=== PATIENT | female | born 1990 | race American Indian/Alaskan Native ===

== ENCOUNTER 2017-07-03 23:14 | Emergency (ER) | payer SELFPAY ==
[2017-07-03] MEDS ORDERED: Albuterol/Ipratropium 3.0-0.5 MG/3 ML Neb Soln INH ONE (23:15)
[2017-07-03] MEDS ORDERED: Amoxicillin/Clavulanate K 875-125 MG Tab PO ONE (23:15)
[2017-07-03] MEDS ORDERED: Albuterol/Ipratropium 3.0-0.5 MG/3 ML Neb Soln NEB ONE (23:33)
[2017-07-03] MEDS ORDERED: Albuterol/Ipratropium 3.0-0.5 MG/3 ML Neb Soln ONE (23:43)
[2017-07-03] MEDS ORDERED: Amoxicillin/Clavulanate K 875-125 MG Tab ONE (23:43)
[2017-07-04 00:06] VITALS: BP 120/71
--- NOTE | 2017-07-04 00:06 | EDM.PDOC ---
ED HPI GENERAL MEDICAL PROBLEM - General Chief Complaint: Respiratory Problem Stated Complaint: CHEST PAIN, DIFFICULTY BREATHING Time Seen by Provider: 07/04/17 00:07 Source of Information: Reports: Patient History Limitations: Reports: No Limitations - History of Present Illness INITIAL COMMENTS - FREE TEXT/NARRATIVE: c/o cold symptoms for past 3-4 days, fever, cough, congestion. Notes hx frequent pneumonia with similar symptoms . Reports using OTC cough and cold medications without improvement. Has home nebulizer but no medication. 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 ED EXAM, GENERAL - Physical Exam Exam: See Below Exam Limited By: No Limitations General Appearance: Alert, Mild Distress Eye Exam: Bilateral Eye: EOMI Ears: Normal External Exam Ear Exam: Right Ear: TM Dull, Left Ear: TM Red (with effusion ) Nose: Clear Rhinorrhea, Other (sinus tenderness, erythema turbinates) Throat/Mouth: Normal Inspection Head: Atraumatic, Normocephalic Neck: Normal Inspection Respiratory/Chest: Lungs Clear, Decreased Breath Sounds (bases), Other ( frequent dry cough) Cardiovascular: Normal Peripheral Pulses, Regular Rate, Rhythm GI/Abdominal: Normal Bowel Sounds Neurological: Alert, Oriented Psychiatric: Flat Affect Skin Exam: Warm, Dry, Intact, Normal Color Course - Vital Signs Last Recorded V/S: Last Vital Signs Temp 98.4 F 07/03/17 23:25 Pulse 77 07/03/17 23:25 Resp 20 07/03/17 23:25 BP 118/75 07/03/17 23:25 Pulse Ox 98 07/03/17 23:25 - Orders/Labs/Meds Orders: Active Orders 24 hr Category Date Time Status RT Aerosol Therapy [RC] ASDIRECTED Care 07/03/17 23:33 Active Meds: Medications Discontinued Medications Generic Name Dose Route Start Last Admin Trade Name Maria E PRN Reason Stop Dose Admin Albuterol/Ipratropium 3 ml 07/03/17 23:33 07/03/17 23:37 Duoneb 3.0-0.5 Mg/3 Ml NEB 07/03/17 23:34 3 ml ONETIME ONE Administration Albuterol/Ipratropium Confirm 07/03/17 23:43 Duoneb 3.0-0.5 Mg/3 Ml Administered 07/03/17 23:44 Dose 9 ml .ROUTE .STK-MED ONE Amoxicillin/Clavulanate Potassium Confirm 07/03/17 23:43 Augmentin 875 Mg/125 Mg Administered 07/03/17 23:44 Dose 2 tab .ROUTE .STK-MED ONE Departure - Departure Time of Disposition: 00:01 Disposition: Home, Self-Care 01 Condition: Good Clinical Impression: Left otitis media with effusion, Bronchitis, History of asthma - Discharge Information Instructions: Upper Respiratory Infection, Adult, [id number] Additional Instructions: albuterol neb every 4 hours as needed augmentin 875 one twice daily for one week increase fluids humidification clinic follow up this week - My Orders Last 24 Hours: My Active Orders 07/03/17 23:33 RT Aerosol Therapy [RC] ASDIRECTED - Assessment/Plan Last 24 Hours: My Active Orders 07/03/17 23:33 RT Aerosol Therapy [RC] ASDIRECTED
== END 2017-07-04 00:08 | disposition home or self-care (01) ==
LOC: DL.ED 23:14
DX: H65.92 Unspecified nonsuppurative otitis media, left ear (principal); J40 Bronchitis, not specified as acute or chronic
CPT/HCPCS: 94640; 99284; A9270

== ENCOUNTER 2017-08-01 17:44 | Emergency (ER) | payer SELFPAY ==
[2017-08-01] MEDS ORDERED: Sodium Chloride 0.9% 1,000 ML IV ONE (18:12)
--- NOTE | 2017-08-01 18:12 | EDM.PDOC ---
<Tony Cervantes - Last Filed: 08/01/17 18:43> ED HPI GENERAL MEDICAL PROBLEM - General Chief Complaint: General Stated Complaint: SICK. [phone] NO ID Time Seen by Provider: 08/01/17 18:05 Source of Information: Reports: Patient History Limitations: Reports: No Limitations - History of Present Illness INITIAL COMMENTS - FREE TEXT/NARRATIVE: This 27 yo female patient reports to the ED with a 3 day history of generalized body aches, increased abdominal discomfort, fevers and chills. The patient reports she has been taking Tylenol and ibuprofen for temporary symptom relief. The patient reports she also has pain in her back. The patient has not attempted to get into the clinic and is not on any antibiotics. The patient reports she has had a hysterectomy. 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 [No Known Home Meds] 08/01/17 [History] Past Medical History Other HEENT History: history of ear infections - Past Surgical History Other HEENT Surgeries/Procedures: doesn't know if she still has tonsils. Female Surgical History: Reports: Section, Hysterectomy Social & Family History - Tobacco Use Smoking Status *Q: Never Smoker Years of Tobacco use: 5 Packs/Tins Daily: 1 Second Hand Smoke Exposure: No - Caffeine Use Caffeine Use: Reports: Coffee, Soda, Tea - Alcohol Use Days Per Week of Alcohol Use: 0 - Recreational Drug Use Recreational Drug Use: No Drug Use in Last 12 Months: Yes Recreational Drug Type: Reports: Methamphetamine Recreational Drug Use Frequency: Daily ED ROS GENERAL - Review of Systems Review Of Systems: ROS reveals no pertinent complaints other than HPI. ED EXAM, GENERAL - Physical Exam Exam: See Below Exam Limited By: No Limitations General Appearance: Alert, WD/WN, Moderate Distress, Thin Eye Exam: Bilateral Eye: EOMI, Normal Inspection, PERRL Ears: Normal External Exam, Normal Canal, Hearing Grossly Normal, Normal TMs, Other (fluid visible behind TMs) Nose: Normal Inspection, Normal Mucosa, No Blood Throat/Mouth: Normal Inspection, Normal Lips, Normal Teeth, Normal Gums, Normal Oropharynx, Normal Voice, No Airway Compromise Head: Atraumatic, Normocephalic Neck: Normal Inspection, Supple, Non-Tender, Full Range of Motion Respiratory/Chest: No Respiratory Distress, Lungs Clear, Normal Breath Sounds, No Accessory Muscle Use, Chest Non-Tender Cardiovascular: Normal Peripheral Pulses, Regular Rate, Rhythm, No Edema, No Gallop, No JVD, No Murmur, No Rub GI/Abdominal: Normal Bowel Sounds, Soft, No Organomegaly, No Distention, No Abnormal Bruit, No Mass, Pelvis Stable, Tender (generalized abdominal tenderness ) (Female) Exam: Deferred Rectal (Female) Exam: Deferred Back Exam: CVA Tenderness (L), CVA Tenderness (R) Extremities: Normal Inspection, Normal Range of Motion, Non-Tender, Normal Capillary Refill, No Pedal Edema Neurological: Alert, Oriented, CN II-XII Intact, Normal Cognition, Normal Gait, Normal Reflexes, No Motor/Sensory Deficits Psychiatric: Normal Affect, Normal Mood Skin Exam: Dry, Intact, Normal Color, No Rash, Increased Warmth Lymphatic: No Adenopathy Course - Vital Signs Last Recorded V/S: Last Vital Signs Temp 98.7 F 08/01/17 19:57 Pulse 70 08/01/17 19:57 Resp 16 08/01/17 19:57 BP 95/58 L 08/01/17 19:57 Pulse Ox 99 08/01/17 19:57 - Orders/Labs/Meds Orders: Active Orders 24 hr Category Date Time Status CULTURE BLOOD [BC] Stat Lab 08/01/17 18:21 Received CULTURE BLOOD [BC] Stat Lab 08/01/17 18:28 Received CULTURE STREP A CONFIRMATION [RM] Stat Lab 08/01/17 18:11 Results STREP SCRN A RAPID W CULT CONF [RM] Stat Lab 08/01/17 18:11 Results Blood Culture x2 Reflex Set [OM.PC] Stat Oth 08/01/17 18:07 Ordered Labs: Laboratory Tests 08/01/17 08/01/17 08/01/17 Range/Units 18:21 18:24 18:24 WBC (5.0-10.0) 10^3/uL RBC (4.2-5.4) 10^6/uL Hgb (12.0-16.0) g/dL Hct (37.0-47.0) % MCV (80-100) fL MCH (27.0-34.0) pg MCHC (33.0-35.0) g/dL Plt Count (150-450) 10^3/uL Neut % (Auto) (42.2-75.2) % Lymph % (Auto) (20.5-50.1) % [place] % (Auto) (2-8) % Eos % (Auto) (1.0-3.0) % Baso % (Auto) (0.0-1.0) % Sodium (135-145) mmol/L Potassium (3.6-5.0) mmol/L Chloride (101-111) mmol/L Carbon Dioxide (21.0-31.0) mmol/L Anion Gap BUN (7-18) mg/dL Creatinine (0.6-1.3) mg/dL Est Cr Clr Drug Dosing mL/min Estimated GFR (MDRD) BUN/Creatinine Ratio Glucose (74-105) mg/dL Lactic Acid 0.7 (0.5-2.2) mmol/L Calcium (8.4-10.2) mg/dl Total Bilirubin (0.2-1.0) mg/dL AST (10-42) IU/L ALT (10-60) IU/L Alkaline Phosphatase (42-121) IU/L Total Protein (6.7-8.2) g/dl Albumin (3.2-5.5) g/dl Globulin Albumin/Globulin Ratio Amylase (28-100) U/L Lipase (22-51) U/L Urine Color Dark yellow (YELLOW) Urine Appearance Turbid (CLEAR) Urine pH 6.5 (5.0-9.0) Ur Specific [place] 1.020 (1.005-1.030) Urine Protein 30 H (NEGATIVE) Urine Glucose (UA) Negative (NEGATIVE) Urine Ketones Negative (NEGATIVE) Urine Occult Blood Moderate H (NEGATIVE) Urine Nitrite Positive H (NEGATIVE) Urine Bilirubin Negative (NEGATIVE) Urine Urobilinogen 1.0 (0.2-1.0) mg/dL Ur Leukocyte Esterase Moderate H (NEGATIVE) Urine RBC >100 H /HPF Urine WBC Packed H (0-5/HPF) /HPF Ur Epithelial Cells Many H /HPF Amorphous Sediment Few (0/HPF) /HPF Urine Bacteria Many H (0-FEW/HPF) /HPF Urine Mucus Many H /LPF Urine Opiates Screen Negative (NEGATIVE) Ur Oxycodone Screen Negative (NEGATIVE) Urine Methadone Screen Negative (NEGATIVE) Ur Barbiturates Screen Negative (NEGATIVE) U Tricyclic Antidepress Negative (NEGATIVE) Ur Phencyclidine Scrn Negative (NEGATIVE) Ur Amphetamine Screen Negative (NEGATIVE) U Methamphetamines Scrn Negative (NEGATIVE) Urine MDMA Screen Negative (NEGATIVE) U Benzodiazepines Scrn Negative (NEGATIVE) Urine Cocaine Screen Negative (NEGATIVE) U Marijuana (THC) Screen Negative (NEGATIVE) 08/01/17 08/01/17 Range/Units 18:28 18:28 WBC 10.0 (5.0-10.0) 10^3/uL RBC 4.49 (4.2-5.4) 10^6/uL Hgb 13.9 D (12.0-16.0) g/dL Hct 43.2 (37.0-47.0) % MCV 96.2 D (80-100) fL MCH 31.0 (27.0-34.0) pg MCHC 32.2 L (33.0-35.0) g/dL Plt Count 247 D (150-450) 10^3/uL Neut % (Auto) 77.6 H (42.2-75.2) % Lymph % (Auto) 9.2 L (20.5-50.1) % [place] % (Auto) 12.5 H (2-8) % Eos % (Auto) 0.6 L (1.0-3.0) % Baso % (Auto) 0.1 (0.0-1.0) % Sodium 138 (135-145) mmol/L Potassium 3.4 L (3.6-5.0) mmol/L Chloride 102 (101-111) mmol/L Carbon Dioxide 28.0 (21.0-31.0) mmol/L Anion Gap 11.4 BUN 7 (7-18) mg/dL Creatinine 0.6 (0.6-1.3) mg/dL Est Cr Clr Drug Dosing 105.34 mL/min Estimated GFR (MDRD) > 60 BUN/Creatinine Ratio 11.66 Glucose 92 (74-105) mg/dL Lactic Acid (0.5-2.2) mmol/L Calcium 9.4 (8.4-10.2) mg/dl Total Bilirubin 0.5 (0.2-1.0) mg/dL AST 47 H (10-42) IU/L ALT 40 (10-60) IU/L Alkaline Phosphatase 117 (42-121) IU/L Total Protein 8.0 (6.7-8.2) g/dl Albumin 4.0 (3.2-5.5) g/dl Globulin 4.0 Albumin/Globulin Ratio 1.00 Amylase 19 L (28-100) U/L Lipase 18 L (22-51) U/L Urine Color (YELLOW) Urine Appearance (CLEAR) Urine pH (5.0-9.0) Ur Specific [place] (1.005-1.030) Urine Protein (NEGATIVE) Urine Glucose (UA) (NEGATIVE) Urine Ketones (NEGATIVE) Urine Occult Blood (NEGATIVE) Urine Nitrite (NEGATIVE) Urine Bilirubin (NEGATIVE) Urine Urobilinogen (0.2-1.0) mg/dL Ur Leukocyte Esterase (NEGATIVE) Urine RBC /HPF Urine WBC (0-5/HPF) /HPF Ur Epithelial Cells /HPF Amorphous Sediment (0/HPF) /HPF Urine Bacteria (0-FEW/HPF) /HPF Urine Mucus /LPF Urine Opiates Screen (NEGATIVE) Ur Oxycodone Screen (NEGATIVE) Urine Methadone Screen (NEGATIVE) Ur Barbiturates Screen (NEGATIVE) U Tricyclic Antidepress (NEGATIVE) Ur Phencyclidine Scrn (NEGATIVE) Ur Amphetamine Screen (NEGATIVE) U Methamphetamines Scrn (NEGATIVE) Urine MDMA Screen (NEGATIVE) U Benzodiazepines Scrn (NEGATIVE) Urine Cocaine Screen (NEGATIVE) U Marijuana (THC) Screen (NEGATIVE) Meds: Medications Discontinued Medications Generic Name Dose Route Start Last Admin Trade Name Freq PRN Reason Stop Dose Admin Ceftriaxone Sodium 1 gm 08/01/17 20:50 Rocephin IVPUSH 08/01/17 20:51 ONETIME ONE Sodium Chloride 1,000 mls @ 999 mls/hr 08/01/17 18:12 08/01/17 18:31 Normal Saline IV 08/01/17 19:12 999 mls/hr .BOLUS ONE Administration Ketorolac Tromethamine 30 mg 08/01/17 19:26 08/01/17 19:41 Toradol IVPUSH 08/01/17 19:27 30 mg ONETIME ONE Administration Ondansetron HCl 4 mg 08/01/17 19:26 08/01/17 19:39 Zofran IV 08/01/17 19:27 4 mg ONETIME ONE Administration Departure - Departure Disposition: Home, Self-Care 01 Clinical Impression: Pyelonephritis - Discharge Information Instructions: Pyelonephritis, Adult, [id number] Forms: ED Department Discharge Additional Instructions: cipro 500mg one twice daily for 5 days increase fluid intake alternate tylenol 650mg and ibuprofen 600mg every 4 hours as needed for discomfort clinic follow up on , call to schedule appointment <Janene Fernández - Last Filed: 08/01/17 20:54> Departure - Departure Time of Disposition: 20:52 Condition: Good
[2017-08-01 18:55] LABS: CHLORIDE,CL 102 mmol/L (101-111); SODIUM,NA 138 mmol/L (135-145)
[2017-08-01] MEDS ORDERED: Ketorolac 30 MG/ML SDV IVPUSH ONE (19:26)
[2017-08-01] MEDS ORDERED: Ondansetron 4 MG/2 ML SDV IV ONE (19:26)
[2017-08-01 19:58] VITALS: BP 95/58
[2017-08-01] MEDS ORDERED: cefTRIAXone 1 GM Vial IVPUSH ONE (20:50)
== END 2017-08-01 21:15 | disposition home or self-care (01) ==
LOC: DL.ED 17:44
DX: N12 Tubulo-interstitial nephritis, not specified as acute or chronic (principal)
CPT/HCPCS: 36415; 74176; 80053; 80305; 81001; 82150; 83605; 83690; 85025; 87040; 87081; 87430; 87804; 96361; 96374; 96375; 99284; J0696; J1885; J2405; J7030

== ENCOUNTER 2017-10-22 00:05 | Emergency (ER) | payer SELFPAY ==
[2017-10-22] MEDS ORDERED: Acetaminophen/HYDROcodone 325-10 MG Tab PO ONE (00:06)
[2017-10-22 00:20] VITALS: BP 127/89
[2017-10-22] MEDS ORDERED: Sodium Chloride 0.9% 1,000 ML IV ONE (00:49)
[2017-10-22] MEDS ORDERED: Iopamidol 612 MG/ML 75 ML Bottle IVPUSH ONE (01:07)
--- NOTE | 2017-10-22 01:07 | EDM.PDOC ---
ED HPI GENERAL MEDICAL PROBLEM - General Chief Complaint: Flank Pain Stated Complaint: IN BY AMBULANCE Time Seen by Provider: 10/22/17 00:54 Source of Information: Reports: Patient History Limitations: Reports: No Limitations - History of Present Illness INITIAL COMMENTS - FREE TEXT/NARRATIVE: This 27 yo female patient was brought to the ED by [facility] due to left lower abdominal pain and left back pain. The patient reports her symptoms started this morning. The patient has been taking ibuprofen and Tylenol with no relief. The patient reports no history of trauma, falls or other injuries to the area. The patient reports similar symptoms on the other side about 1 year ago due to a UTI. The patient reports she has been nauseated today and vomited 1 time today. The patient reports she has been feeling like she has chills and sweats through out the day. Onset Date: 10/21/17 Duration: Constant, Getting Worse Location: Reports: Abdomen (LLQ), Back (Left lower back) Quality: Reports: Ache, Sharp, Stabbing Severity: Severe Improves with: Reports: None Worsens with: Reports: None Associated Symptoms: Reports: Nausea/Vomiting Treatments SHOP HAND: Reports: Acetaminophen, NSAIDS Left Flank Pain Score (Numeric/FACES): 10 - Related Data Allergies Allergy/AdvReac Type Severity Reaction Status Date / Time No Known Allergies Allergy Verified 10/22/17 00:05 Home Meds: Home Meds . [No Known Home Meds] 08/01/17 [History] Past Medical History Other HEENT History: history of ear infections Genitourinary History: Reports: Pyelonephritis, UTI, Recurrent CLINICAL STUDIES SPECIALIST History: Reports: - Past Surgical History Other HEENT Surgeries/Procedures: doesn't know if she still has tonsils. 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 ED EXAM, GI/ABD - Physical Exam Exam: See Below Exam Limited By: No Limitations General Appearance: Alert, WD/WN, Moderate Distress Eyes: Bilateral: Normal Appearance, EOMI Ears: Normal External Exam, Normal Canal, Hearing Grossly Normal, Normal TMs Nose: Normal Inspection, Normal Mucosa, No Blood Throat/Mouth: Normal Inspection, Normal Lips, Normal Teeth, Normal Gums, Normal Oropharynx, Normal Voice, No Airway Compromise Head: Atraumatic, Normocephalic Neck: Normal Inspection, Supple, Non-Tender, Full Range of Motion Respiratory/Chest: No Respiratory Distress, Lungs Clear, Normal Breath Sounds, No Accessory Muscle Use, Chest Non-Tender GI/Abdominal Exam: No Organomegaly, No Distention, No Abnormal Bruit, No Mass, Pelvis Stable, Guarding, Tender (LLQ) (Female) Exam: Deferred Rectal (Female) Exam: Deferred Back Exam: Normal Inspection, Full Range of Motion, NT Extremities: Normal Inspection, Normal Range of Motion, Non-Tender, Normal Capillary Refill, No Pedal Edema Neurological: Alert, Oriented, CN II-XII Intact, Normal Cognition, Normal Gait, Normal Reflexes, No Motor/Sensory Deficits Psychiatric: Normal Affect, Normal Mood Skin Exam: Warm, Dry, Intact, Normal Color, No Rash Lymphatic: No Adenopathy Course - Vital Signs Last Recorded V/S: Last Vital Signs Temp 37.6 C 10/22/17 00:18 Pulse 78 10/22/17 00:18 Resp 20 10/22/17 00:18 BP 127/89 10/22/17 00:18 Pulse Ox 100 10/22/17 00:18 - Orders/Labs/Meds Labs: Laboratory Tests 10/22/17 10/22/17 10/22/17 Range/Units 00:10 00:10 00:45 WBC 9.5 (5.0-10.0) 10^3/uL RBC 4.38 (4.2-5.4) 10^6/uL Hgb 13.3 (12.0-16.0) g/dL Hct 39.9 (37.0-47.0) % MCV 91.1 D (80-100) fL MCH 30.4 (27.0-34.0) pg MCHC 33.3 (33.0-35.0) g/dL Plt Count 310 (150-450) 10^3/uL Sodium (135-145) mmol/L Potassium (3.6-5.0) mmol/L Chloride (101-111) mmol/L Carbon Dioxide (21.0-31.0) mmol/L Anion Gap BUN (7-18) mg/dL Creatinine (0.6-1.3) mg/dL Est Cr Clr Drug Dosing mL/min Estimated GFR (MDRD) BUN/Creatinine Ratio Glucose (74-105) mg/dL Lactic Acid (0.5-2.2) mmol/L Calcium (8.4-10.2) mg/dl Total Bilirubin (0.2-1.0) mg/dL AST (10-42) IU/L ALT (10-60) IU/L Alkaline Phosphatase (42-121) IU/L Total Protein (6.7-8.2) g/dl Albumin (3.2-5.5) g/dl Globulin Albumin/Globulin Ratio Urine Color Light yellow (YELLOW) Urine Appearance Slightly cloudy (CLEAR) Urine pH 7.0 (5.0-9.0) Ur Specific [place] 1.015 (1.005-1.030) Urine Protein Negative (NEGATIVE) Urine Glucose (UA) Negative (NEGATIVE) Urine Ketones Negative (NEGATIVE) Urine Occult Blood Negative (NEGATIVE) Urine Nitrite Negative (NEGATIVE) Urine Bilirubin Negative (NEGATIVE) Urine Urobilinogen 0.2 (0.2-1.0) mg/dL Ur Leukocyte Esterase Negative (NEGATIVE) Urine RBC 0-5 /HPF Urine WBC 0-5 (0-5/HPF) /HPF Ur Epithelial Cells Moderate H /HPF Urine Bacteria Moderate H (0-FEW/HPF) /HPF Urinalysis Comment Urine Opiates Screen Negative (NEGATIVE) Ur Oxycodone Screen Negative (NEGATIVE) Urine Methadone Screen Negative (NEGATIVE) Ur Barbiturates Screen Negative (NEGATIVE) U Tricyclic Antidepress Negative (NEGATIVE) Ur Phencyclidine Scrn Negative (NEGATIVE) Ur Amphetamine Screen Negative (NEGATIVE) U Methamphetamines Scrn Negative (NEGATIVE) Urine MDMA Screen Negative (NEGATIVE) U Benzodiazepines Scrn Negative (NEGATIVE) Urine Cocaine Screen Negative (NEGATIVE) U Marijuana (THC) Screen Negative (NEGATIVE) 10/22/17 10/22/17 Range/Units 00:45 00:45 WBC (5.0-10.0) 10^3/uL RBC (4.2-5.4) 10^6/uL Hgb (12.0-16.0) g/dL Hct (37.0-47.0) % MCV (80-100) fL MCH (27.0-34.0) pg MCHC (33.0-35.0) g/dL Plt Count (150-450) 10^3/uL Sodium 138 (135-145) mmol/L Potassium 3.6 (3.6-5.0) mmol/L Chloride 103 (101-111) mmol/L Carbon Dioxide 26.0 (21.0-31.0) mmol/L Anion Gap 12.6 BUN 12 (7-18) mg/dL Creatinine 0.5 L (0.6-1.3) mg/dL Est Cr Clr Drug Dosing 125.95 mL/min Estimated GFR (MDRD) > 60 BUN/Creatinine Ratio 24.00 Glucose 105 (74-105) mg/dL Lactic Acid 1.4 (0.5-2.2) mmol/L Calcium 9.6 (8.4-10.2) mg/dl Total Bilirubin 0.5 (0.2-1.0) mg/dL AST 34 (10-42) IU/L ALT 36 (10-60) IU/L Alkaline Phosphatase 56 (42-121) IU/L Total Protein 7.2 (6.7-8.2) g/dl Albumin 4.2 (3.2-5.5) g/dl Globulin 3.0 Albumin/Globulin Ratio 1.40 Urine Color (YELLOW) Urine Appearance (CLEAR) Urine pH (5.0-9.0) Ur Specific [place] (1.005-1.030) Urine Protein (NEGATIVE) Urine Glucose (UA) (NEGATIVE) Urine Ketones (NEGATIVE) Urine Occult Blood (NEGATIVE) Urine Nitrite (NEGATIVE) Urine Bilirubin (NEGATIVE) Urine Urobilinogen (0.2-1.0) mg/dL Ur Leukocyte Esterase (NEGATIVE) Urine RBC /HPF Urine WBC (0-5/HPF) /HPF Ur Epithelial Cells /HPF Urine Bacteria (0-FEW/HPF) /HPF Urinalysis Comment Urine Opiates Screen (NEGATIVE) Ur Oxycodone Screen (NEGATIVE) Urine Methadone Screen (NEGATIVE) Ur Barbiturates Screen (NEGATIVE) U Tricyclic Antidepress (NEGATIVE) Ur Phencyclidine Scrn (NEGATIVE) Ur Amphetamine Screen (NEGATIVE) U Methamphetamines Scrn (NEGATIVE) Urine MDMA Screen (NEGATIVE) U Benzodiazepines Scrn (NEGATIVE) Urine Cocaine Screen (NEGATIVE) U Marijuana (THC) Screen (NEGATIVE) Meds: Medications Discontinued Medications Generic Name Dose Route Start Last Admin Trade Name Maria E PRN Reason Stop Dose Admin Hydromorphone HCl 1 mg 10/22/17 02:14 10/22/17 02:33 Dilaudid IVPUSH 10/22/17 02:15 1 mg ONETIME ONE Administration Sodium Chloride 1,000 mls @ 999 mls/hr 10/22/17 00:49 10/22/17 00:55 Normal Saline IV 10/22/17 01:49 999 mls/hr .BOLUS ONE Administration Iopamidol 75 ml 10/22/17 01:07 10/22/17 01:23 Isovue-300 (61%) IVPUSH 10/22/17 01:08 75 ml ONETIME ONE Administration Morphine Sulfate 2 mg 10/22/17 01:17 10/22/17 01:21 Morphine IVPUSH 10/22/17 01:18 2 mg ONETIME ONE Administration Departure - Departure Time of Disposition: 02:47 Disposition: Home, Self-Care 01 Condition: Fair Clinical Impression: Ovarian cyst Qualifiers: Laterality: left Qualified Code(s): N83.202 - Unspecified ovarian cyst, left side - Discharge Information Instructions: Ovarian Cyst, [id number] Forms: ED Department Discharge Care Plan Goals: The patient was advised of the examination, lab and CT results during the visit. The patient was given IV pain medications while in the ED. The patient was discharged with [place] (10/325) #2 to take 1 by mouth every 6 hours and a script for [place] (10/325) #10 to take 1 by mouth every 6 hours as needed for pain. 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 If the patient has any additional symptoms or concerns, the patient should either visit her primary care facility or return to the emergency department.
[2017-10-22 01:13] LABS: CHLORIDE,CL 103 mmol/L (101-111); SODIUM,NA 138 mmol/L (135-145)
[2017-10-22] MEDS ORDERED: Morphine 2 MG/ML Syringe IVPUSH ONE (01:17)
[2017-10-22] MEDS ORDERED: HYDROmorphone 1 MG/ML Syringe IVPUSH ONE (02:14)
[2017-10-22] MEDS ORDERED: Acetaminophen/HYDROcodone 325-10 MG Tab ONE (02:51)
== END 2017-10-22 02:58 | disposition home or self-care (01) ==
LOC: DL.ED 00:05
DX: N83.202 Unspecified ovarian cyst, left side (principal); Z90.710 Acquired absence of both cervix and uterus; Z72.0 Tobacco use
CPT/HCPCS: 36415; 74177; 80053; 80305; 81001; 83605; 85027; 96361; 96374; 96375; 99284; J1170; J2270; J7030; Q9967; A9270-GY

== ENCOUNTER 2018-04-03 09:22 | Inpatient (IN) | payer MEDICAID ==
[2018-04-03] MEDS ORDERED: Magnesium Hydroxide 400 MG/5 ML Susp 30 ML Cup PO PRN (16:11)
[2018-04-03] MEDS ORDERED: Acetaminophen/oxyCODONE 325-5 MG Tab PO PRN ×2 (16:11)
[2018-04-03] MEDS ORDERED: Polyethylene Glycol 3350 Powder 17 GM Packet PO PRN (16:11)
[2018-04-03] MEDS ORDERED: Acetaminophen 325 MG Tab PO PRN (16:15)
[2018-04-03] MEDS: cefTRIAXone 2 GM in Sodium Chloride 0.9% 100 ML IV SCH (17:29)
[2018-04-03] MEDS: Acetaminophen/oxyCODONE 325-5 MG Tab PO PRN (17:30)
[2018-04-03] MEDS: Phenazopyridine 95 MG Tab PO SCH (21:08)
[2018-04-03] MEDS: TEMAZEPAM 15 MG PO PRN (21:08)
--- NOTE | 2018-04-03 23:45 | HP ---
CHIEF COMPLAINT: Recent diagnosis of acute pyelonephritis, requiring IV antibiotics [employer] terminal plant [employer]. HISTORY OF PRESENT ILLNESS: Ms. Aimee Foster is a 27-year-old female with medical history significant for high IV drug abuse in the past, was initially admitted to [facility] in [place] on 03/28/2018 with complaints of severe flank pain and abdominal pain and was noted to have bilateral pyelonephritis. The patient was consulted by Infectious Disease team while there, and the patient had extensive workup done including a CT scan of the abdomen and pelvis and also an ultrasound of the kidneys. CT scan of the abdomen showed evidence of diffusely thickened, well-distended urinary bladder suggesting acute infectious including interstitial cystitis and multiple bilateral ill-defined hypoattenuating lesions in both kidneys consistent with acute pyelonephritis with possible embolic infection disease in view of the bilaterality, and the ultrasound was also suggestive of pyelonephritis. The patient was treated with IV antibiotics with vancomycin and ceftriaxone. Initial urine culture from [facility] showed evidence of E. coli, but the urine culture at [facility] was negative, and also the blood cultures remained negative at [facility]. Infectious Disease has recommended for continuation of the IV antibiotics for at least 2 to 4 weeks from 03/29/2018, so is being admitted to [facility] for continued IV antibiotics. At this time, the patient complains of pain to the right side, to the flank side. She grades the pain as 5-6/10 in intensity, which gets aggravated on movement, relieved with pain medication, nonradiating type of pain, aggravated on movement, not associated with any nausea or vomiting. Denies any chest pain. No shortness of breath. The patient denied any history of chest pains on exertion. No history of dyspnea on exertion. No history of orthopnea or paroxysmal nocturnal dyspnea. The patient denied any history of hematemesis, hematochezia, or melenic stools. Normal bowel and bladder habits otherwise. REVIEW OF SYSTEMS: A complete review of systems including skin, ear, nose, and throat, cardiovascular system, respiratory system, gastrointestinal system, genitourinary system, hematology, oncology, neurology, allergy, immunology, constitutional were all evaluated and were negative except for the above-said notes. PAST MEDICAL HISTORY: Significant for: 1. IV drug use. 2. Sexually transmitted diseases. 3. History of pelvic pain. 4. Miscarriage. 5. Dysfunctional uterine bleeding. 6. Depression. 7. Anemia. PAST SURGICAL HISTORY: Significant for vaginal uterus dilatation and curettage, laparoscopic tubal blockade, tubal ligation, and hysterectomy. FAMILY HISTORY: Significant for depression and substance abuse in her mother. Depression and substance abuse in her father. Heart disease and depression in her brother. SOCIAL HISTORY: The patient has chronic history of tobacco use, history of alcohol intake, and history of IV drug abuse. ALLERGIES: No known drug allergies. HOME MEDICATIONS: Include: 1. Ibuprofen 800 mg every 6 hours as needed. 2. Tylenol 650 every 6 hours as needed. DISCHARGE MEDICATIONS from [facility] include: 1. Percocet 5/325 mg every 6 hours as needed for pain and 2 tablets for severe pain. 2. Senokot 1 tablet twice a day. 3. Restoril 2 caps by mouth as needed for sleep. 4. Ceftriaxone 2 g IV daily. PHYSICAL EXAMINATION: General Appearance: The patient is well oriented to time, place, and person. Follows commands spontaneously. Cardiovascular System: S1 and S2 heard with normal intensity. No gallops. Respiratory System: Clear to auscultation bilaterally. No wheeze. No crepitations. Abdomen: Mild tenderness to the right flank side. No rigidity. No guarding. Extremities: No edema of bilateral lower extremities. Neurology: No gross focal neurological deficits. LABORATORY DATA: Obtained from [facility]. Sodium 140, potassium 3.8, chloride 109, bicarb 26.3, BUN 4, creatinine 0.6. WBC 5.4, hemoglobin 10.6, hematocrit 31.8, platelet count 290. ASSESSMENT: 1. Acute bilateral pyelonephritis. 2. Acute cystitis. 3. History of intravenous drug abuse. 4. Pain. PLAN: 1. Urinary tract infection with bilateral pyelonephritis. The patient was evaluated by Infectious Disease team and has recommended for long-term antibiotics for 2 to 4 weeks of IV antibiotics from 03/29/2018. The patient has a PICC line in place. We will continue the IV ceftriaxone. She will require 2 g IV daily. We will continue the same. We will follow with ID recommendations. 2. Pain. The patient continues to have pain and is requesting for pain medication. She is discharged home on Percocet. We will continue the same. 3. DVT prophylaxis. We will have her on heparin q.12 hourly for DVT prophylaxis while in the swing bed. 4. Code status. The patient wants to be DNR/DNI. 5. Reviewed the labs and medications. Reviewed the charts obtained from [facility]. [facility] /[id number] MTDD
[2018-04-04] MEDS: Acetaminophen/oxyCODONE 325-5 MG Tab PO PRN ×4 (03:27→21:45)
[2018-04-04 06:52] LABS: ANION GAP 10.2; CHLORIDE,CL 105 mmol/L (101-111); SODIUM,NA 138 mmol/L (135-145)
[2018-04-04] MEDS: Phenazopyridine 95 MG Tab PO SCH ×3 (09:51→20:43)
[2018-04-04] MEDS: Enoxaparin 40 MG/0.4 ML Syringe SUBCUT SCH (09:51)
[2018-04-04] MEDS: cefTRIAXone 2 GM in Sodium Chloride 0.9% 100 ML IV SCH (17:16)
[2018-04-04] MEDS: TEMAZEPAM 15 MG PO PRN (21:46)
[2018-04-05] MEDS: Acetaminophen/oxyCODONE 325-5 MG Tab PO PRN ×4 (04:18→22:30)
[2018-04-05] MEDS: Phenazopyridine 95 MG Tab PO SCH ×3 (09:01→22:22)
[2018-04-05] MEDS: Enoxaparin 40 MG/0.4 ML Syringe SUBCUT SCH (09:02)
[2018-04-05] MEDS: cefTRIAXone 2 GM in Sodium Chloride 0.9% 100 ML IV SCH (16:30)
[2018-04-05] MEDS: TEMAZEPAM 15 MG PO PRN (22:30)
[2018-04-06] MEDS: Acetaminophen/oxyCODONE 325-5 MG Tab PO PRN ×3 (08:12→20:23)
[2018-04-06] MEDS: Phenazopyridine 95 MG Tab PO SCH (10:24)
[2018-04-06] MEDS: Polyethylene Glycol 3350 Powder 17 GM Packet PO SCH (10:24)
[2018-04-06] MEDS: Enoxaparin 40 MG/0.4 ML Syringe SUBCUT SCH (10:27)
[2018-04-06] MEDS: Ibuprofen 200 MG Tab PO PRN ×2 (12:10→22:58)
[2018-04-06] MEDS: Acetaminophen 325 MG Tab PO PRN (14:23)
[2018-04-06] MEDS: cefTRIAXone 2 GM in Sodium Chloride 0.9% 100 ML IV SCH (16:58)
[2018-04-06] MEDS: TEMAZEPAM 15 MG PO PRN (21:29)
[2018-04-07] MEDS: Enoxaparin 40 MG/0.4 ML Syringe SUBCUT SCH (08:46)
[2018-04-07] MEDS: Acetaminophen/oxyCODONE 325-5 MG Tab PO PRN ×3 (08:47→20:34)
[2018-04-07] MEDS: Polyethylene Glycol 3350 Powder 17 GM Packet PO SCH (08:47)
[2018-04-07] MEDS: Ibuprofen 200 MG Tab PO PRN ×2 (09:25→17:21)
[2018-04-07] MEDS: Acetaminophen 325 MG Tab PO PRN ×2 (11:15→16:46)
[2018-04-07] MEDS: cefTRIAXone 2 GM in Sodium Chloride 0.9% 100 ML IV SCH (16:46)
[2018-04-07] MEDS: Ondansetron 4 MG Tab.DIS PO PRN (18:27)
[2018-04-07] MEDS: TEMAZEPAM 15 MG PO PRN (21:33)
[2018-04-08] MEDS: Acetaminophen/oxyCODONE 325-5 MG Tab PO PRN ×4 (02:42→21:20)
[2018-04-08] MEDS: Ibuprofen 200 MG Tab PO PRN ×3 (05:51→18:20)
[2018-04-08] MEDS: Enoxaparin 40 MG/0.4 ML Syringe SUBCUT SCH (09:26)
[2018-04-08] MEDS: Polyethylene Glycol 3350 Powder 17 GM Packet PO SCH (09:26)
[2018-04-08] MEDS: Acetaminophen 325 MG Tab PO PRN (10:08)
[2018-04-08] MEDS: cefTRIAXone 2 GM in Sodium Chloride 0.9% 100 ML IV SCH (16:55)
[2018-04-08] MEDS: Ondansetron 4 MG Tab.DIS PO PRN (16:55)
[2018-04-08] MEDS: TEMAZEPAM 15 MG PO PRN (21:19)
[2018-04-09] MEDS: Ibuprofen 200 MG Tab PO PRN ×3 (00:45→17:14)
[2018-04-09] MEDS: Acetaminophen/oxyCODONE 325-5 MG Tab PO PRN ×3 (03:29→17:16)
--- NOTE | 2018-04-09 10:09 | PN ---
DATE: 04/05/2018 SUBJECTIVE: Aimee Foster is a 27-year-old female who recently had an acute hospitalization for urinary tract infection, was found to have bilateral pyelonephritis, possibly on an embolic basis. This is because of her background history of IV drug abuse, and she may have seeded the kidneys with septic emboli. Urine culture grew E. coli. She has been followed by Infectious Disease. She currently is on IV ceftriaxone. She has a PICC line in place and will need 2 to 4 weeks of IV ceftriaxone from 04/08/2018. Review of her clinical data shows stable vital signs. She has been afebrile. She is taking adequate fluids. She is voiding and moving her bowels. She is tolerating her diet. The concern that was expressed by nursing staff, and then review of her chart, regards the use of opioids. When Ms. Foster was discharged from [place] to come to [facility] for admission, she was given her discharge package. In the discharge package, there was a prescription for 24 oxycodone 5/325 tablets. She apparently filled this prescription prior to arriving at the hospital and took several of the tablets. The remainder of those tablets have been used during this admission. The original plan apparently was for 24 tablets with no refills. Since the time of admission, she has been consistently taking 2 tablets of the hydrocodone and will call the nurses every time a new dose is available to her. Review of her MAR shows that from the time she goes to bed at possibly 10:00 or 11:00 until the next morning, she does not ring for the pain pills. Because of this and because of the concern given her opioid history and the fact that it is at least 2 weeks since the diagnosis of her acute pyelonephritis, we felt that it was time to consider dose reduction. She also continues on ibuprofen 200 mg every 6 hours p.r.n., but does not seem to take any of this. Her order for 2 tablets of 5/325 mg oxycodone was discontinued, and she was continued on Percocet 5/325 one tablet every 6 hours. The patient became upset and angry about this and threatened to leave AMA. Nursing staff spoke with her, tried to point out to her that this was in her best interest. When she realized that she would not get the 10 mg back, she stated that she would stay. PLAN: Otherwise, no other changes were made today; and she will continue on remainder of her medications and will continue on antibiotics per Infectious Disease instructions. [facility] /[id number] MTDD
[2018-04-09] MEDS: Enoxaparin 40 MG/0.4 ML Syringe SUBCUT SCH (10:40)
[2018-04-09] MEDS: Polyethylene Glycol 3350 Powder 17 GM Packet PO SCH (10:52)
[2018-04-09] MEDS: Acetaminophen 325 MG Tab PO PRN ×2 (13:42→21:53)
[2018-04-09] MEDS: Ondansetron 4 MG Tab.DIS PO PRN (17:17)
[2018-04-09] MEDS: Sodium Chloride 0.9% 10 ML Syringe FLUSH PRN ×2 (17:19→22:18)
[2018-04-09] MEDS: cefTRIAXone 2 GM in Sodium Chloride 0.9% 100 ML IV SCH (17:22)
[2018-04-09] MEDS: TEMAZEPAM 15 MG PO PRN (21:56)
[2018-04-10] MEDS: Acetaminophen/oxyCODONE 325-5 MG Tab PO PRN ×3 (08:08→21:42)
[2018-04-10] MEDS: Enoxaparin 40 MG/0.4 ML Syringe SUBCUT SCH (08:09)
[2018-04-10] MEDS: Polyethylene Glycol 3350 Powder 17 GM Packet PO SCH (08:09)
[2018-04-10] MEDS: Ibuprofen 200 MG Tab PO PRN (08:52)
[2018-04-10] MEDS: Acetaminophen 325 MG Tab PO PRN (11:03)
[2018-04-10] MEDS: Ibuprofen 400 MG Tab PO PRN ×2 (15:32→21:41)
[2018-04-10] MEDS: cefTRIAXone 2 GM in Sodium Chloride 0.9% 100 ML IV SCH (17:09)
[2018-04-10] MEDS: TEMAZEPAM 15 MG PO PRN (21:33)
[2018-04-11] MEDS: Ibuprofen 400 MG Tab PO PRN ×3 (05:53→18:25)
[2018-04-11] MEDS: Acetaminophen/oxyCODONE 325-5 MG Tab PO PRN ×3 (05:54→18:25)
[2018-04-11] MEDS: Enoxaparin 40 MG/0.4 ML Syringe SUBCUT SCH (08:28)
[2018-04-11] MEDS ORDERED: Barium Sulfate w/v 2.1% Oral Susp 450 ML Bottle PO ONE (08:40)
[2018-04-11] MEDS ORDERED: Iopamidol 612 MG/ML 75 ML Bottle IVPUSH ONE (08:40)
[2018-04-11] MEDS: Polyethylene Glycol 3350 Powder 17 GM Packet PO SCH (11:16)
--- NOTE | 2018-04-11 14:51 | CT ---
CLINICAL HISTORY: 27-year-old 110 pound female smoker with "infection" who has had 4 abdominal CTs si ncJuly 2017 that suggest chronic urinary bladder inflammation or infection (hysterectomy). SCAN TECHNIQUE: Volume acquisition of data from the abdomen and pelvis obtained after oral ingestion 2 bottles of Redicat barium and during the intravenous infusion 75 cc nonionic Isovue contrast (3 cc/ s via injector) while the patient was lying supine on the Siemens multislice scanner [place], [place]. All data archived in the PACS system for storage, reformatting axial /sagittal/coronal planes and study. INTERPRETATION: 1. Large volume of stool identified across the course of the normal caliber colon, concentrated in th e rectosigmoid colon. 2. No abdominal or pelvic mass lesion; no mesenteric or retroperitoneal lymphadenopathy; no sign of s mall bowel obstruction, inflammatory "dirty" peritoneal fat, intraperitoneal/retroperitoneal abscess, ascites or free intraperitoneal air. 3. Normal lumbar spine. Normal aortoiliac vessels. No retroperitoneal psoas or paraspinal abscess. No rmal appendix RLQ. 4. Gallbladder, liver, stomach, spleen, pancreas and adrenal glands unremarkable. 5. Normal reniform size, axis and configuration. No sign of renal cortical mass lesion, perinephric i nflammation, nephrolithiasis or obstructive uropathy. Urinary bladder "flattened" in the midline show s no abnormal wall thickening or intraluminal calcifications. 6. Normal cardiac silhouette. Lung bases clear, i.e., no infiltrate or atelectasis. CONCLUSION: Obstipation. CT scan abdomen and pelvis otherwise unremarkable, i.e., negative.
[2018-04-11] MEDS: cefTRIAXone 2 GM in Sodium Chloride 0.9% 100 ML IV SCH (16:41)
[2018-04-11] MEDS ORDERED: Alteplase 2 MG Vial IVPUSH ONE (16:57)
[2018-04-12] MEDS: Acetaminophen/oxyCODONE 325-5 MG Tab PO PRN ×2 (00:19→08:18)
[2018-04-12] MEDS: TEMAZEPAM 15 MG PO PRN (00:19)
[2018-04-12] MEDS: Ibuprofen 400 MG Tab PO PRN ×2 (00:20→08:21)
[2018-04-12] MEDS: Enoxaparin 40 MG/0.4 ML Syringe SUBCUT SCH (08:22)
[2018-04-12] MEDS: Polyethylene Glycol 3350 Powder 17 GM Packet PO SCH (08:23)
[2018-04-12 08:40] VITALS: BP 99/57
--- NOTE | 2018-04-12 11:34 | PCM.DCSUM1 ---
Discharge Summary - Hospital Course Free Text/Narrative:: Patient admitted to swing bed for pyelonephritis to complete IV antibiotics for 2 weeks. Repeat abdomen pelvic CT was reviewed by ID and recommendation was to discharge patient with no antibiotics. patient will follow up with ID next week. She was seen this morning with no complaints. HPI Initial Comments: Patient admitted to swing bed for pyelonephritis to complete IV antibiotics for 2 weeks. Repeat abdomen pelvic CT was reviewed by ID and recommendation was to discharge patient with no antibiotics. patient will follow up with ID next week. She was seen this morning with no complaints. Diagnosis: Stroke: No - Discharge Data Discharge Date: 04/12/18 Discharge Disposition: Home, Self-Care 01 Condition: Good - Patient Instructions Diet: Heart Healthy Diet Notify Provider of: Fever, Increased Pain, Swelling and Redness, Nausea and/or Vomiting - Discharge Plan *PRESCRIPTION DRUG MONITORING PROGRAM REVIEWED*: Yes *COPY OF PRESCRIPTION DRUG MONITORING REPORT IN PATIENT JESSICA: Yes Home Medications: Home Meds Acetaminophen [Tylenol] 650 mg PO Q6H PRN 04/03/18 [History] Docusate Sodium/Sennosides [Senokot-S] 1 tab PO BID 04/03/18 [History] Ibuprofen 800 mg PO Q6H PRN 04/03/18 [History] Acetaminophen/oxyCODONE [Percocet 325-5 MG] 1 tab PO Q8H PRN #10 tablet [Rx] - Discharge Summary/Plan Comment DC Time >30 min.: Yes - Patient Data Vitals - Most Recent: Last Vital Signs Temp 98.5 F 04/12/18 08:39 Pulse 89 04/12/18 08:39 Resp 20 04/12/18 08:39 BP 99/57 L 04/12/18 08:39 Pulse Ox 100 04/12/18 08:39 Weight - Most Recent: 109 lb 2 oz I&O - Last 24 hours: Intake & Output 04/11/18 04/12/18 04/12/18 22:59 06:59 14:59 Intake Total 308 600 465 Balance 308 600 465 Med Orders - Current: Current Medications Acetaminophen (Tylenol) 650 mg PO Q4H PRN PRN Reason: Pain (Mild 1-3)/fever Last Admin: 04/10/18 11:03 Dose: 650 mg Enoxaparin Sodium (Lovenox) 40 mg SUBCUT DAILY [facility] Last Admin: 04/12/18 08:22 Dose: Not Given Ceftriaxone Sodium 2 gm/ (Sodium Chloride) 100 mls @ 200 mls/hr IV Q24H [facility] Last Admin: 04/11/18 16:41 Dose: 200 mls/hr Ibuprofen (Motrin) 400 mg PO Q6H PRN PRN Reason: Pain Last Admin: 04/12/18 08:21 Dose: 400 mg Magnesium Hydroxide (Milk Of Magnesia) 30 ml PO Q12H PRN PRN Reason: Constipation Ondansetron HCl (Zofran Odt) 4 mg PO Q4H PRN PRN Reason: nausea, able to take PO Last Admin: 04/09/18 17:17 Dose: 4 mg Oxycodone/Acetaminophen (Percocet 325-5 Mg) 1 tab PO Q6H PRN PRN Reason: Pain Last Admin: 04/12/18 08:18 Dose: 1 tab Polyethylene Glycol (Miralax) 17 gm PO DAILY [facility] Last Admin: 04/12/18 08:23 Dose: Not Given Senna/Docusate Sodium (Senna Plus) 1 tab PO BEDTIME PRN PRN Reason: Constipation Senna/Docusate Sodium (Senna Plus) 1 tab PO BID [facility] Last Admin: 04/12/18 08:23 Dose: Not Given Sodium Chloride (Saline Flush) 10 ml FLUSH ASDIRECTED PRN PRN Reason: Keep Vein Open Last Admin: 04/09/18 22:18 Dose: 10 ml Temazepam (Restoril) 30 mg PO BEDTIME PRN PRN Reason: Sleep Last Admin: 04/12/18 00:19 Dose: 30 mg Discontinued Medications Acetaminophen (Tylenol) 650 mg PO Q6H PRN PRN Reason: Pain/Fever Alteplase, Recombinant (Cathflo Activase) 2 mg IVPUSH ONETIME ONE Stop: 04/11/18 16:58 Last Admin: 04/11/18 17:11 Dose: 2 mg Barium Sulfate (Readi-Cat 2) 900 ml PO ONETIME ONE Stop: 04/11/18 08:41 Last Admin: 04/11/18 08:57 Dose: 900 ml Ibuprofen (Motrin) 200 mg PO Q8H PRN PRN Reason: Pain Last Admin: 04/08/18 05:51 Dose: 200 mg Ibuprofen (Motrin) 200 mg PO Q6H PRN PRN Reason: Pain Last Admin: 04/10/18 08:52 Dose: 200 mg Iopamidol (Isovue-300 (61%)) 75 ml IVPUSH ONETIME ONE Stop: 04/11/18 08:41 Last Admin: 04/11/18 10:38 Dose: 75 ml Oxycodone/Acetaminophen (Percocet 325-5 Mg) 1 tab PO Q4H PRN PRN Reason: Pain (moderate 4-6) Oxycodone/Acetaminophen (Percocet 325-5 Mg) 2 tab PO Q4H PRN PRN Reason: Pain (severe 7-10) Oxycodone/Acetaminophen (Percocet 325-5 Mg) 2 tab PO Q6H PRN PRN Reason: Pain (severe 7-10) Last Admin: 04/05/18 22:30 Dose: 2 tab Phenazopyridine HCl (Urinary Pain Relief) 95 mg PO TID FIONA Stop: 04/06/18 09:00 Last Admin: 04/06/18 10:24 Dose: 95 mg Polyethylene Glycol (Miralax) 17 gm PO DAILY PRN PRN Reason: Constipation
== END 2018-04-12 12:20 | disposition home or self-care (01) | DRG 690 ==
LOC: DL.MS 14:21 → UNDOADMIN 14:21 → DL.MS 16:12
PROVIDERS: ADMIT Internal Medicine; ATTEND Internal Medicine
DX: N10 Acute pyelonephritis (principal); N30.00 Acute cystitis without hematuria; F32.9 Major depressive disorder, single episode, unspecified; D64.9 Anemia, unspecified; A64 Unspecified sexually transmitted disease; F19.90 Other psychoactive substance use, unspecified, uncomplicated; Z81.3 Family history of other psychoactive substance abuse and dependence; Z81.8 Family history of other mental and behavioral disorders; Z72.0 Tobacco use; Z79.899 Other long term (current) drug therapy; Z66 Do not resuscitate; B96.20 Unspecified Escherichia coli [E. coli] as the cause of diseases classified elsewhere
CPT/HCPCS: 36415; 74177; 80048; 82565; 84460; 85025; 85027; 85651; 86140; A9270-GY; J0696; J2997; J7050; Q9967